=== PATIENT | male | born 1960 | race Caucasian/White ===

== ENCOUNTER 2023-10-24 23:06 | Observation (INO) | payer BC, SELFPAY ==
[2023-10-24 20:36] VITALS: BP 148/98
[2023-10-24 20:53] LABS: % Basophils 0.3 % (0-2); % Eosinophils 1.8 % (0-6); % Immature Granulocytes 0.4 % (0-0.5); % Lymphocytes 13.3 % (20.5-51.1); % Monocytes 7.7 % (1.7-9.3); % Neutrophils 76.5 % (42.2-75.2); Absolute Eosinophils 0.2 10^3/uL (0-0.7); Absolute Immature Granulocytes 0.1 10^3/uL (0-0.05); Absolute Lymphocytes 1.6 10^3/uL (1.2-3.4); Absolute Monocytes 0.9 10^3/uL (0.1-0.6); Absolute Neutrophils 8.9 10^3/uL (1.4-6.5); Hematocrit 41.2 % (39.0-52.0); Hemoglobin 14.7 g/dL (13.0-18.0); Mean Corp Hgb Conc. 35.7 g/dL (33.0-37.0); Mean Corpuscular Hgb 29.7 pg (27.0-31.0); Mean Corpuscular Volume 83.2 fL (80.0-94.0); Mean Platelet Volume 10.6 fL (7.4-10.4); Nucleated Red Blood Cells % 0 % (-); Platelet Count 267 10^3/uL (130-400); Red Blood Cell Count 4.95 10^6/uL (4.70-6.10); Red Cell Dist. Width 13.4 % (11.5-14.5); White Blood Cell Count 11.7 10^3/uL (4.8-10.8)
[2023-10-24 21:14] LABS: ALT (SGPT) 35 U/L (0-50); AST (SGOT) 24 U/L (17-59); Albumin 4.9 g/dl (3.5-5.0); Alkaline Phosphatase 69 U/L (38-126); Blood Urea Nitrogen 35 mg/dl (9-20); Calcium 9.4 mg/dl (8.4-10.2); Carbon Dioxide 19 mmol/L (22-30); Chloride 102 mmol/L (98-107); Glucose 140 mg/dl (70-99); Potassium 4.9 mmol/L (3.5-5.1); Sodium 136 mmol/L (135-145); Total Bilirubin 0.9 mg/dl (0.2-1.3); Total Protein 7.5 g/dl (6.3-8.2); eGFR 48.72
--- NOTE | 2023-10-24 21:59 | ED.GENMED ---
History of Present Illness
General
Chief Complaint: Skin Problem
Source: patient
Exam Limitations: none
Time Seen by Provider: 10/24/23 21:34
History of Present Illness
History of Present Illness:
This is a 63 year old male that comes in with c/o redness of the left great toe. States that about a month ago he jammed his great toe on a metal piece. 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 States that last night his trimmed his hand nail and then
today he noticed that the great toe was swollen. state that there was no redness yesterday or any redness going up into his leg. State that on Sunday he did not feel well and he had a fever. States that he went to bed at 8pm and at 1am he awoke
soaking wet. States that he has been ok since then. Denies any chills, chest pain, SOB, abd pain, nausea, vomiting, diarrhea, headache, dizziness, urinary burning.
Past History
Past History
ED Past Medical History: NIDDM and Other (Neuropathy, Sepsis)
ED Past Surgical History: Orthopedic (Elbow surgery, Right shoulder surgery)
Social History
Tobacco: Non-smoker
Alcohol: Occasional
Drug: None
Personal:
Living: with family
Employment: Employed
Review of Systems
Review of Systems
All Other Systems: ROS reviewed and negative except as documented in HPI and ROS
Constitutional: Reports fever (On Sunday); Denies chills
EENT: Reports no symptoms
Respiratory: Reports no symptoms; Denies cough or trouble breathing
Cardiac: Reports no symptoms; Denies chest pain
ABD/GI: Reports no symptoms; Denies abdominal pain, nausea, vomiting or diarrhea
: Reports no symptoms; Denies dysuria, frequency or urgency
Musculoskeletal: Reports other (Swelling of the left great toe )
Skin: Reports other (Redness of the left great toe into the foot and anterior lower leg, Increased warmth)
Neurological: Reports no symptoms; Denies dizzy or headache
Psychiatric: Reports no symptoms
Phy Exam
General Physical Exam
General Presentation: no apparent distress
General age: appears stated age
General Skin: warm and dry
General Habitus: normal
General Mental: alert
ENT Exam
ENT Exam: TM's normal, pharynx normal and neck supple
Eye Exam
Eye Exam: EOMI
Cardiovascular Exam
Cardiovascular Exam: regular rate/rhythm, no murmur and normal peripheral pulses
Pulmonary Exam
Pulmonary Exam: lungs clear, no respiratory distress, no rales, chest non tender, no crackles, no rhonchi, no wheezing and no cough
Gastrointestinal Exam
Gastrointestinal Exam: non tender, soft, no organomegaly, no pulsatile mass, non distended and other (Hypoactive bowel sounds)
Musculoskeletal Exam
Musculoskeletal Exam: full ROM and other (Left great toe contusion with swelling. )
Skin Exam
Skin Exam: normal color, warm/dry, no petechia and other (Left great toe redness, swelling and increased warmth, Redness in to the dorsal aspect of the foot and lower anterior leg)
Psychiatric Exam
Psychiatric Exam: normal mood/affect
Course
Orders/Labs/Results
Orders:
Orders
10/24/23 Dinner
1800 calorie (15 carb) Diabetic
At Your Request: Full Participation
10/24/23 20:46
CMP [Comprehensive Metabolic Panel] Urgent
Complete Blood Count/With Diff Urgent
10/24/23 21:58
CR Foot - Left Min 3 Views Urgent
Comment:
Reason For Exam: Cellulitis great toe, swelling pain
10/24/23 22:02
Piperacillin/Tazo 3.375 Gram [Zosyn] 3.375 gram in 50 ml IV NOW
Vancomycin 1 Gram/200 ml [Vancocin] 1 gram in 200 ml IV NOW
10/24/23 22:26
Lactic Acid Urgent
10/24/23 22:38
Admit/Transfer Patient As Directed
Co-Sign Provider:
Level of Care: Observation services
Assign to:: Medical/Surgical
Physician / Group: Hospitalist
Diagnosis: Cellulitis
PRN Pain Medication Management As Directed
May give lesser potent ordered pain med per pt: Yes
preference::
Protocol:: Medication orders for pain may be administered in a
manner that supports deferring to patient preference
when the pt is:
- Requesting an ordered lesser potent pain medication.
Least to most potent pain medications are defined
as: acetaminophen < NSAID < tramadol < opioids
(morphine, oxycodone, hydromorphone).
- Requesting a lesser dose of the same medication IF
ORDERED.
- Requesting a less intrusive route of administration
if both routes are prescribed by the provider (PO <
IV).
10/24/23 22:39
Code Status As Directed
Resuscitation Status: Full Code
10/24/23 23:00
Flush (0.9% Sodium Chloride) [Flush (Nss)] See Dose Instructions IV PER PROTOCOL
10/24/23 23:34
Acetaminophen [Tylenol] 650 mg PO Q4HPRN PRN
Bisacodyl [Dulcolax] 10 mg RECTAL [id number] PRN
Docusate W/Senna [Senokot-S] 1 tablet PO BIDPRN PRN
Polyethylene Glycol Powder [Miralax] 17 grams PO DAILYPRN PRN
10/24/23 23:34
MRSA Screen Routine
REGGIE Source: Nose
Specimen Description:
Activity As Directed
Activity Level: As Tolerated
Bedside Glucose Monitoring As Directed
Frequency: AC&HS
Vital Signs As Directed
Frequency: Per unit guidelines
DX Deep Vein Thrombosis Video Routine
10/25/23 06:00
Basic Metabolic Panel IN AM
Complete Blood Count/No Diff IN AM
10/25/23 07:30
Insulin Aspart Corrective Low [Novolog Flexpen-Low Resistance] See Protocol SC AC
10/25/23 08:00
Aspirin Chewable [Low Strength Aspirin] 81 mg PO DAILY
Empagliflozin [Jardiance] 25 mg PO DAILY
Glimepiride [Amaryl] 2 mg PO DAILY
Metformin Extended Release [Glucophage Xr Extended Release] 1,000 mg PO BID AT 0800,1700
Pantoprazole [Protonix] 40 mg PO DAILY
Spironolactone [Aldactone] 50 mg PO BID
10/25/23 08:45
CeFAZolin 2 GRAM [Ancef] 2 grams in 10 ml IV Q8H
10/25/23 18:00
Atorvastatin [Lipitor] 20 mg PO QPM
Enoxaparin Sodium [Lovenox] 40 mg SC QPM
10/25/23 22:00
Acetaminophen [Tylenol] 500 mg PO HS
Diphenhydramine [Benadryl] 50 mg PO HS
Abnormal Lab Results
10/24/23
20:46
WBC 11.7 H 10^3/uL
(4.8-10.8)
MPV 10.6 H fL
(7.4-10.4)
Abs Immat Gran (auto) 0.1 H 10^3/uL
(0-0.05)
Absolute Neuts (auto) 8.9 H 10^3/uL
(1.4-6.5)
Absolute Monos (auto) 0.9 H 10^3/uL
(0.1-0.6)
Neutrophils % 76.5 H %
(42.2-75.2)
Lymphocytes % 13.3 L %
(20.5-51.1)
Carbon Dioxide 19 L mmol/L
(22-30)
BUN 35 H mg/dl
(9-20)
Creatinine 1.6 H mg/dL
(0.7-1.3)
Glucose 140 H mg/dl
(70-99)
10/24/23 20:46
10/24/23 20:46
Leukocytosis, acute renal insufficiency, Hyperglycemia, Lactic acid normal at 1.0
Vital Signs
Initial and Last Documented VS:
Initial Vital Signs
Temp Pulse Resp BP Pulse Ox
98.9 F 103 16 148/98 95
10/24/23 20:36 10/24/23 20:36 10/24/23 20:36 10/24/23 20:36 10/24/23 20:36
Last Documented Vital Signs
Temp Pulse Resp BP Pulse Ox
98.3 F 97 18 134/78 93
10/24/23 23:38 10/24/23 23:38 10/24/23 23:38 10/24/23 23:38 10/24/23 23:38
MDM/Problems Addressed
Differential Diagnosis Includes:
Cellulitis right toe and foot,
MDM/Problems Addressed:
This is a 63 year old male that comes in with c/o swelling, redness of the left great to. State that this started today as there was no redness there last night.
Will get labs. Give IV fluids, X-ray and admit.
Chronic conditions affecting care: DM
Acute Exacerbation and/or Progression of Chronic Illness: DM
*Radiology
Radiology exam reviewed: preliminary read by ED provider (Foot- Negative for any air or fractures. Soft tissue swelling noted)
*Pulse Oximetry
Patient hypoxic: no
*EKG
Interpreted by ED Provider?: NA
Rate: EKG- N/A
*Wind Operations Manager Interpretation
Rate: Wind Operations Manager- N/A
*Critical Care Note
Total Time (30-74mins, 75-104mins- exclusive of procedures): Not Applicable
ED Attending Note
-
Portions of this chart may have been created with voice recognition software.� Occasional wrong word or��sound alike� substitutions may have occurred due to the inherent limitations of voice recognition software.
Discharge Plan
Departure
Patient Disposition: Admit
Admit to: Med/Surg
Presentation/result/management discussed w/ accepting MD/DO: Hospitalist
Patient with high blood pressure during this ER visit?: Yes
Condition: Good
Covid-19: Not Applicable
Discharge Problem:
Cellulitis of left foot excluding toes
Interventions
Interventions:
*Risk Screen - Suicide Last Done: 10/24/23 22:26
*General Assessment Last Done: 10/24/23 20:36
*Neglect/Abuse Screening Last Done: 10/24/23 22:26
*ED COVID-19 Vaccine History Last Done: 10/24/23 20:36
*Nursing Disposition Last Done: 10/24/23 23:20
ED-Skin Assessment Last Done: 10/24/23 22:26
Discharge Date and Time
Discharge Date/Time: 10/24/23 23:21
--- NOTE | 2023-10-24 22:21 | HPS.HSE ---
Family Physician
-
Family Physician:
Chief Complaint
-
Left great toe redness and swelling
History of Present Illness
This is 63-year-old with yha-[id number] diabetes, hypertension, hyperlipidemia, prior sepsis who presents to the emergency department with acute episode of redness in the left great toe.
Patient reported that about a month ago he had an injury to that toe upon stubbing his toe. He had some blackening of the tip of the toe which had been resolving slowly. He had been in usual state of health up until today. He reported that last
night the leg was examined by spouse who is a nurse and he had no abnormality there at that time. He looked at his leg today and suddenly noted the redness and swelling. He denied having any pain. Range of motion is intact. Denied having any
fevers or chills. He was not recently on any antibiotics. He has been diagnosed with mild neuropathy but has decent sensation in his feet. Denies any prior history of diabetic foot ulcer or infections.
In the ED he was afebrile, hemodynamically stable and in no acute distress. White count was 11.7, chemistries were mostly unremarkable. His creatinine has crept up to 1.6 over the last year.
Medical History
Past Medical History
Past Medical History: Reports HTN and NIDDM
Additional Past Medical History:
CKD III
h/o MSSA bacteremia
Past Surgical History: Reports None
Social History
Tobacco: Non-smoker
Alcohol: None
Drug: None
Personal:
Living: With Family
Employment: Employed
Family History
Family History: Not pertinent
Allergies / Home Medications
Allergies reflects when Allergies were last updated in [facility] [employer].
Home Medications with original date entered in [facility] [employer]
Allergy/Medication List:
Allergies
Allergy/AdvReac Type Severity Reaction Status Date / Time
No Known Allergies Allergy Verified 10/24/23 20:42
Home Medications
aspirin 81 mg chewable tablet 81 mg PO DAILY Blood clot prevention/tx 08/16/20
empagliflozin 25 mg tablet (Jardiance) 25 mg PO DAILY Diabetes 08/16/20
atorvastatin 20 mg tablet 20 mg PO QPM 10/24/23
diphenhydramine 25 mg-acetaminophen 500 mg tablet (Tylenol PM Extra Strength) 2 tab PO HS 10/24/23
empagliflozin 25 mg tablet (Jardiance) 25 mg PO DAILY 10/24/23
glimepiride 2 mg tablet 2 mg PO DAILY 10/24/23
metformin 500 mg tablet,extended release 24 hr 1,000 mg PO BIDWMEAL 10/24/23
omeprazole magnesium 20 mg tablet,delayed release (Prilosec OTC) 20 mg PO DAILY 10/24/23
spironolactone 50 mg tablet 50 mg PO BID 10/24/23
Review of Systems
-
History Source: Patient
Constitutional: Reports No Symptoms
EENT: Reports No Symptoms
Respiratory: Reports No Symptoms
Cardiac: Reports No Symptoms
Abdomen/GI: Reports No Symptoms
: Reports No Symptoms
Musculoskeletal: Reports Joint Swelling
Skin: Reports Rash
Neurological: Reports No Symptoms
Endocrine: Reports No Symptoms
Hematologic/Lymphatic: Reports No Symptoms
Psych: Reports No Symptoms
Physical Exam
Vital Signs
Vital Signs
Temp Pulse Resp BP Pulse Ox
98.9 F 103 16 148/98 95
10/24/23 20:36 10/24/23 20:36 10/24/23 20:36 10/24/23 20:36 10/24/23 20:36
Physical Exam
General: Well Developed, Well Nourished and No Apparent Distress
HEENT: NormoCephalic, Anicteric, Moist mucous membranes and PERRLA
Respiratory: Clear
Cardiac: S1/S2 and Regular Rhythm
Breast: Deferred by me
GI: Soft, Non Tender and Non Distended
Rectal: Deferred by Provider
Genito-urinary: Deferred by me
Musculoskeletal: No Clubbing, No Cyanosis, No Edema and Other (Left great toe erythema and edema just below the nail bed. Foot w/o edema or erythema. Passive ROM is normal. No tenderness to palpation.)
Skin: Warm and Dry
Neuro: AO x 3
Hematologic/Lymphatic: No Lymphadenopathy
Psych: Calm
Laboratory Results
-
10/24/23 20:46
10/24/23 20:46
Laboratory Results
Total Bilirubin 0.9 mg/dl (0.2-1.3) 10/24/23 20:46
AST 24 U/L (17-59) 10/24/23 20:46
ALT 35 U/L (0-50) 10/24/23 20:46
Alkaline Phosphatase 69 U/L (38-126) 10/24/23 20:46
Data Reviewed
-
Lab Data: Labs Reviewed by me
Impression/Plan
-
IMPRESSION:
PLAN:
1. Left great toe cellulitis - Acute redness and swelling at the left great toe. No apparent joint involvement. No lymphangitic spread. No tenderness to palpation. No signs of systemic infection. No purulence noted. Mild or very early
infection suspected. Trauma in that area several weeks ago but unlikely to be current etiology. Patient with low risk factors. H/O MSSA bacteremia.
- admit to obs
- iv cefazolin for now, given vanc in ED. MRSA nasal swab.
- check left foot xray for foreign body, toe involvement or trauma, if negative patient can go home on oral regimen
2. DM II - Well controlled blood glucose. No signs of sepsis, dehydration or JOSE. Will continue with home regimen.
- continue metformin and jardiance
- continue glimepiride.
- sliding scale insulin
3. HTN - Stable
- continue spironolactone
4. CKD - Patient with known CKD. Creatinine slowly increasing. Being followed by PMD.
- no evidence of acute kidney injury
- obtain u/a for proteinuria
- follow up with pmd and possible outpatient nephrology consult
DVT PPX - lovenox sq
Full Code
[2023-10-24 22:26] VITALS: BP 156/94; BMI 27.4
[2023-10-24] MEDS: ZOSYN 50 IV (22:32)
[2023-10-24] MEDS: VANCOCIN 200 IV (23:10)
[2023-10-24 23:38] VITALS: BP 134/78; BMI 27.0
[2023-10-24 23:58] LABS: Glucose - Point of Care 131 mg/dl (70-99)
[2023-10-25 00:18] LABS: Urine Albumin Negative (Neg - Trace); Urine Bilirubin Negative (Negative); Urine Character Clear (Clear); Urine Color Yellow; Urine Glucose 3+ (Negative); Urine Ketone 1+ (Negative); Urine Leukocyte Negative (Negative); Urine Nitrite Negative (Negative); Urine Occult Blood Negative (Negative); Urine Specific Gravity 1.015 (<1.030); Urine Urobilinogen Negative (Neg - 1+)
--- NOTE | 2023-10-25 01:17 | PTCARENOTE ---
Patient arrived from the ED via stretcher at approximately 2330. Patient walked self from stretcher to bed - gait steady. Patient AAOx3. Patient oriented to room. Bed in lowest position. Call cloud within reach.
[2023-10-25 05:51] VITALS: BMI 26.6
[2023-10-25 07:05] VITALS: BP 136/79
[2023-10-25 07:14] LABS: Hematocrit 40.1 % (39.0-52.0); Hemoglobin 14.2 g/dL (13.0-18.0); Mean Corp Hgb Conc. 35.4 g/dL (33.0-37.0); Mean Corpuscular Hgb 30.3 pg (27.0-31.0); Mean Corpuscular Volume 85.5 fL (80.0-94.0); Mean Platelet Volume 10.8 fL (7.4-10.4); Platelet Count 247 10^3/uL (130-400); Red Blood Cell Count 4.69 10^6/uL (4.70-6.10); Red Cell Dist. Width 13.3 % (11.5-14.5)
[2023-10-25 07:32] LABS: Blood Urea Nitrogen 31 mg/dl (9-20); Calcium 9.5 mg/dl (8.4-10.2); Carbon Dioxide 20 mmol/L (22-30); Chloride 102 mmol/L (98-107); Estimated Creatinine Clearance 59 ml/min; Glucose 117 mg/dl (70-99); Potassium 4.7 mmol/L (3.5-5.1); Sodium 136 mmol/L (135-145); eGFR 57.18
[2023-10-25 08:03] LABS: Glucose - Point of Care 193 mg/dl (70-99)
--- NOTE | 2023-10-25 08:24 | W.PN.HOSP.TC ---
Addendum entered and electronically signed by Su Valle MD 10/25/23 13:11:
I saw and evaluated the patient independently. I reviewed the resident�s note and agree with findings and plan as documented by Dr. Colon.
GENERAL: well developed, well nourished, male in no apparent distress
HEENT: NC/AT
HEART: regular rate and rhythm, +S1, +S2
LUNGS : clear to auscultation bilaterally
ABDOM: soft, nontender, nondistended, + bowel sounds
EXT: no cyanosis, clubbing, or edema
NEUROLOGIC: grossly intact
SKIN: left great toe paronychia--no oozing noted--dry skin, swelling of left toe--NON TENDER to touch
Left great toe cellulitis - Acute redness and swelling at the left great toe--No joint involvement--No lymphangitic spread--No tenderness to palpation--No signs of systemic infection-- H/O MSSA bacteremia--s/p IV cefazolin to oral Keflex--podiatry
f/u as outpt
Type II DM-- Well controlled blood glucose--No signs of sepsis, dehydration or JOSE--continue metformin and jardiance-- continue glimepiride-- sliding scale insulin
Essential HTN - Stable- continue spironolactone
CKD stage 3- Patient with known CKD. Creatinine slowly increasing chronically. Creatinine 1.6 on arrival. 1.4 today-- followed by PMD- no evidence of acute kidney injury
DVT PPX - lovenox sq
code status --Full Code
OK for d/c
Original Note:
Today's Communication/Plan
-
Discharge planning
Assessment / Plan
Assessment / Plan
1. Left great toe cellulitis - Acute redness and swelling at the left great toe. No apparent joint involvement. No lymphangitic spread. No tenderness to palpation. No signs of systemic infection. H/O MSSA bacteremia.
- iv cefazolin, was given vanc in ED. MRSA nasal swab pending
- L foot X-ray; No fractures, dislocations, or suspicious bony abnormalities. Joint spaces are preserved. No osseous erosions. Soft tissue swelling about the great toe. Calcaneal enthesophyte at the insertion of the plantar fascia
-Okay to discharge on oral Keflex. Will up with podiatry outpatient
2. DM II - Well controlled blood glucose. No signs of sepsis, dehydration or JOSE. Will continue with home regimen.
- continue metformin and jardiance
- continue glimepiride.
- sliding scale insulin
3. HTN - Stable
- continue spironolactone
4. CKD - Patient with known CKD. Creatinine slowly increasing chronically. Creatinine 1.6 on arrival. 1.4 today. being followed by PMD.
- no evidence of acute kidney injury
DVT PPX - lovenox sq
Full Code
Anticipated Discharge: Today
Subjective/Interval History
-
Date of Service: October 25, 2023
Patient notes improved appearance of left great toe
Objective Data
-
Labs:
Laboratory Results
10/24/23 10/25/23
20:46 05:51
WBC 11.7 H 11.0 H
Hgb 14.7 14.2
Hct 41.2 40.1
Plt Count 267 247
Sodium 136 136
Potassium 4.9 4.7
Chloride 102 102
Carbon Dioxide 19 L 20 L
BUN 35 H 31 H
Creatinine 1.6 H 1.4 H
Glucose 140 H 117 H
Calcium 9.4 9.5
Total Bilirubin 0.9
AST 24
ALT 35
Alkaline Phosphatase 69
Vital Signs:
Vital Signs
Temp Pulse Resp BP Pulse Ox
98.3 F 97 18 134/78 93
10/24/23 23:38 10/24/23 23:38 10/24/23 23:38 10/24/23 23:38 10/24/23 23:38
Review of Systems
-
History Source: Patient
Constitutional: Denies Fever
Musculoskeletal: Reports Other (Left great toe swelling redness); Denies Joint Pain
Neuro: Denies Headache
Physical Exam
-
General: Well Developed, Well Nourished, No Apparent Distress, Comfortable and Conversant
Respiratory: Clear to Auscultation
Cardiac: Regular Rhythm and S1/S2; Negative Murmur or Rub
Musculoskeletal: No Clubbing, No Edema and Other (Redness, swelling and periungual purulence noted in left great toe)
Neuro: Awake, Alert and Oriented
Psych: Calm
[2023-10-25] MEDS: ANCEF 10 IV (08:39)
[2023-10-25] MEDS: ALDACTONE 50 MG PO (08:40)
[2023-10-25] MEDS: JARDIANCE 25 MG PO (08:40)
[2023-10-25] MEDS: PROTONIX 40 MG PO (08:40)
[2023-10-25] MEDS: LOW STRENGTH ASPIRIN 81 MG PO (08:40)
[2023-10-25] MEDS: GLUCOPHAGE XR EXTENDED RELEASE 1000 MG PO (09:56)
[2023-10-25] MEDS: AMARYL 2 MG PO (09:57)
[2023-10-25 10:18] LABS: Glycohemoglobin (HgbA1c) 7.8 % (4.0-5.6)
--- NOTE | 2023-10-25 11:36 | CM ---
Patient seen at bedside with patient and physicians also present. Patient lives in a 2 story home with , a nurse. Patient PCP is Dr. Mcqueen and they use the [facility] on in [place]. Patient plan is for discharge today and follow up
with podiatry. Patient family supportive, OBS form reviewed and signed patient placed on chart. CM will continue to follow for discharge planning needs.
Plan; home with follow up with podiatry/ PCP
[2023-10-25 13:51] VITALS: BP 136/83
--- NOTE | 2023-10-25 16:48 | W.DCSUMMARY ---
Addendum entered and electronically signed by Su Valle MD 10/25/23 18:53:
Read, reviewed, and agree. See same day progress note for additional details. Time spent coordinating care, DC planning, review of DC plan of care with resident, transition of care, review of records in EMR, med rec, consults, notes, d/w
consultants, nursing, family, and CM=25 mins.
Original Note:
Discharge Summary
Discharge Data
Date of Admission: 10/24/23
Date of Discharge: 10/25/23
-
Pending Results: No
Hospital Course
Discharge physician: Ofelia Colon MD; Su Valle MD.
Primary discharge diagnosis: Cellulitis/paronychia
Conditions prior to admission: Non-insulin dependent diabetes mellitus, hypertension, hyperlipidemia
Hospital course: 63 yr old male with history of type 2 diabetes mellitus, diabetic neuropathy, CKD stage III, hypertension, hyperlipidemia, prior sepsis, who presented to the ED on 10/23, for swelling and erythema of left great toe with history of
one episode of subjective fever/sweats, but without pain, loss of sensation, or decreased range of motion. Upon arrival to the ED, he was afebrile, hemodynamically stable, in no acute distress, with mild leukocytosis (11.7), Cr 1.6 and lactic acid
1.0. Examination of his left great toe revealed erythema and swelling without tenderness, and normal active/passive range of motion. Left foot x-ray revealed soft tissue swelling of the great toe without underlying acute osseous abnormality.
He was given IV vancomycin once in the ED, and then switched to IV cefazolin and admitted to observation. All other home medications were continued throughout stay.
Cefazolin was continued, and on 10/24, patient reported subjective improvement of erythema and swelling. WBC improved to 11.0, Cr to 1.2. He was discharged on Keflex 500mg QID to complete 7 day course to 10/30, with recommendations to follow up with
podiatry within one week.
Important data:
Left foot X-ray 10/23: No fractures, dislocations, or suspicious bony abnormalities. Joint spaces are preserved. No osseous erosions. Soft tissue swelling about the great toe. Calcaneal enthesophyte at the insertion of the plantar fascia
Discharge Plan
-
Patient Disposition: Home (Routine Discharge)
Discharge Diagnosis/Procedures: Paronychia, cellulitis
Condition: Good
Diet: Diabetic, Carb Controlled
Activity: No restrictions
Driving Restrictions: As prior to admission
Referrals:
Porfirio Mcqueen MD [Family Provider] - in less than 1 week
Jacquelyn Marcelo DPM [Specified Professional Personl] - (Please follow up with Podiatry in one week from discharge)
Additional Discharge Medication Instructions: Please follow-up with signals intelligence analysis managerJacquelyn DPM in one week
Please take cephalexin 500 mg, 1 capsule 4 times daily to 10/31/2023
Prescriptions:
New
cephalexin 500 mg capsule
500 mg PO QID Qty: 26 0RF
Continued
aspirin 81 MG tablet,chewable
81 mg PO DAILY
Jardiance 25 MG tablet
25 mg PO DAILY
atorvastatin 20 mg tablet
20 mg PO QPM MDD DDD
glimepiride 2 mg tablet
2 mg PO DAILY
diphenhydramine-acetaminophen [Tylenol PM Extra Strength] 25-500 mg Tablet
2 tab PO HS
metformin 500 mg tablet extended release 24 hr
1,000 mg PO BIDWMEAL
spironolactone 50 mg tablet
50 mg PO BID
omeprazole magnesium [Prilosec OTC] 20 mg Tablet,Delayed Release (Dr/Ec)
20 mg PO DAILY
Jardiance 25 mg tablet
25 mg PO DAILY
Discharge Orders:
Discharge Patient (As Directed); Ordered 10/25/23
Ordered By: Ofelia Colon
Discharge Date and Time
Discharge Date/Time: 10/25/23 14:17
Print Language: DOMINICAN
== END 2023-10-25 14:17 | disposition home or self-care (01) ==
LOC: 2 NORTH 23:06
PROVIDERS: Clinical Nurse Specialist Family Health; Emergency Medicine; Nurse Practitioner Family; ADMITTING PHYSICIAN Internal Medicine; ATTENDING PHYSICIAN Internal Medicine; EMERGENCY PHYSICIAN Emergency Medicine; FAMILY PHYSICIAN Internal Medicine Geriatric Medicine
DX: L03.032 Cellulitis of left toe (principal); E11.65 Type 2 diabetes mellitus with hyperglycemia; E11.40 Type 2 diabetes mellitus with diabetic neuropathy, unspecified; E11.22 Type 2 diabetes mellitus with diabetic chronic kidney disease; I12.9 Hypertensive chronic kidney disease with stage 1 through stage 4 chronic kidney disease, or unspecified chronic kidney disease; E78.5 Hyperlipidemia, unspecified; N18.30 Chronic kidney disease, stage 3 unspecified; Z79.82 Long term (current) use of aspirin; Z79.84 Long term (current) use of oral hypoglycemic drugs
CPT/HCPCS: 73630; 80048; 80053; 81003; 82962; 83036; 83605; 85025; 85027; 87070; 96365; 96375; 99284; G0378

== ENCOUNTER → 2024-11-11 07:52 | Outpatient (REF) | payer BC, SELFPAY ==
[2024-11-11 09:02] LABS: Hematocrit 44.7 % (39.0-52.0); Hemoglobin 14.9 g/dL (13.0-18.0); Mean Corp Hgb Conc. 33.3 g/dL (33.0-37.0); Mean Corpuscular Volume 86.5 fL (80.0-94.0); Nucleated Red Blood Cells % 0 % (-); Platelet Count 235 10^3/uL (130-400); Red Cell Dist. Width 13.6 % (11.5-14.5)
[2024-11-11 09:06] LABS: Urine Character Clear (Clear)
[2024-11-11 10:12] LABS: ALT (SGPT) 26 U/L (0-50); AST (SGOT) 19 U/L (17-59); Albumin 4.6 g/dl (3.5-5.0); Alkaline Phosphatase 68 U/L (38-126); Blood Urea Nitrogen 26 mg/dl (9-20); Calcium 9.7 mg/dl (8.4-10.2); Carbon Dioxide 19 mmol/L (22-30); Chloride 109 mmol/L (98-107); Glucose 215 mg/dl (70-99); HDL Cholesterol 26 mg/dl; LDL Cholesterol, Calculated 54 mg/dl; Potassium 5.0 mmol/L (3.5-5.1); Sodium 139 mmol/L (135-145); Total Protein 6.9 g/dl (6.3-8.2); Very Low Density Lipoprotein 53 mg/dl (0-30); eGFR > 60.00
[2024-11-11 10:23] LABS: Glycohemoglobin (HgbA1c) 9.0 % (4.0-5.6)
[2024-11-11 11:46] LABS: Vitamin D, 25-OH*** 40.9 ng/mL (30-80)
[2024-11-11 11:59] LABS: PSA, Total - Screen 0.70 ng/ml (0.0-4.0)
== END ==
LOC: REG 07:52
PROVIDERS: ATTENDING PHYSICIAN Internal Medicine Geriatric Medicine
DX: Z00.00 Encounter for general adult medical examination without abnormal findings (principal); E78.2 Mixed hyperlipidemia; E08.351 Diabetes mellitus due to underlying condition with proliferative diabetic retinopathy with macular edema; E26.9 Hyperaldosteronism, unspecified; E55.9 Vitamin D deficiency, unspecified; Z12.5 Encounter for screening for malignant neoplasm of prostate; R53.83 Other fatigue; Z79.899 Other long term (current) drug therapy; I10 Essential (primary) hypertension
CPT/HCPCS: 36415; 80053; 80061; 81003; 82306; 83036; 85025; G0103

== ENCOUNTER → 2025-01-28 10:37 | Outpatient (REF) | payer BC, SELFPAY | LOC: RAD 10:37 | PROVIDERS: ATTENDING PHYSICIAN Podiatrist Foot & Ankle Surgery; FAMILY PHYSICIAN Internal Medicine Geriatric Medicine; REFERRING PHYSICIAN Specialist | DX: E11.40 Type 2 diabetes mellitus with diabetic neuropathy, unspecified (principal); I73.89 Other specified peripheral vascular diseases | CPT/HCPCS: 93923 ==